=== PATIENT | male | born 1990 | race Hispanic/Latino ===

== ENCOUNTER 2021-02-27 05:28 | Emergency (ER) | payer SELFPAY ==
[~2021-02-27] VITALS: Ht 170.2 cm; Wt 84.4 kg
[2021-02-27 06:38] LABS: AMPHET/METH SCREEN,URINE POSITIVE (NEGATIVE); BARBITURATE SCREEN, URINE NEGATIVE (NEGATIVE); BENZODIAZEPINES SCREEN,URINE POSITIVE (NEGATIVE); CANNABINOID SCREEN,URINE NEGATIVE (NEGATIVE); COCAINE SCREEN,URINE NEGATIVE (NEGATIVE); OPIATE SCREEN,URINE NEGATIVE (NEGATIVE); PHENCYCLIDINE SCREEN,URINE NEGATIVE (NEGATIVE)
[2021-02-27 06:45] LABS: APPEARANCE,URINE CLEAR (CLEAR); BILIRUBIN,URINE NEGATIVE (NEGATIVE); COLOR,URINE YELLOW (YELLOW); GLUCOSE, URINE (UA) NEGATIVE (NEGATIVE); KETONES,URINE NEGATIVE (NEGATIVE); LEUKOCYTE ESTERASE ,URINE NEGATIVE (NEGATIVE); NITRATE,URINE NEGATIVE (NEGATIVE); OCCULT BLOOD,URINE NEGATIVE (NEGATIVE); PH,URINE 7.5 (5.0-8.0); PROTEIN,URINE NEGATIVE (NEGATIVE); UROBILINOGEN,URINE 0.2 mg/dL (0.2-1.0)
[2021-02-27] MEDS ORDERED: CELE200 PO (06:56)
[2021-02-27 06:57] VITALS: BP 133/82
== END 2021-02-27 07:06 | disposition home or self-care (01) ==
LOC: EDH 05:28
DX: F14.10 Cocaine abuse, uncomplicated (principal); M79.2 Neuralgia and neuritis, unspecified
CPT/HCPCS: 80305; 81003

== ENCOUNTER 2021-04-25 01:00 | Emergency (ER) | payer SELFPAY ==
[~2021-04-25] VITALS: Ht 170.2 cm; Wt 90.7 kg
[~2021-04-25 01:00] MED LIST: CELE200 PO
[2021-04-25] MEDS ORDERED: ACET1TAB25 PO (01:28)
[2021-04-25] MEDS ORDERED: PENI500T2 PO (01:28)
[2021-04-25] MEDS ORDERED: PENICILLIN V POTASSIUM 500 MG TABLET PO STA (01:32)
[2021-04-25 01:53] VITALS: BP 126/65
[2021-04-25] MEDS ORDERED: ACETAMINOPHEN WITH CODEINE 1 TAB TAB PO ONE (02:00)
== END 2021-04-25 01:50 | disposition home or self-care (01) ==
LOC: EDH 01:00
DX: G89.29 Other chronic pain (principal); K08.89 Other specified disorders of teeth and supporting structures; Z79.1 Long term (current) use of non-steroidal anti-inflammatories (NSAID)

== ENCOUNTER 2021-07-18 11:32 | Emergency (ER) | payer OTHER ==
[~2021-07-18] VITALS: Ht 170.2 cm; Wt 90.7 kg
[~2021-07-18 11:32] MED LIST changes: +PENI500T2 PO
[2021-07-18 11:33] VITALS: BP 116/79
[2021-07-18] MEDS ORDERED: LIDOCAINE/PRILOCAINE CREAM 5GM TUBE TP ONE (11:52)
[2021-07-18] MEDS ORDERED: LIDOCAINE HCL MPF 1% 5ML VIAL ONE (11:55)
[2021-07-18] MEDS ORDERED: CEFTRIAXONE 500MG VIAL IM ONE (12:00)
[2021-07-18] MEDS ORDERED: LIDOCAINE/PRILOCAINE CREAM 5GM TUBE TP SCH (12:00)
[2021-07-18] MEDS ORDERED: LIDOCAINE HCL 1% 20 ML VIAL INJ SCH (12:00)
[2021-07-18] MEDS ORDERED: ACETAMINOPHEN 500 MG TABLET PO ONE (12:00)
[2021-07-18] MEDS ORDERED: TETANUS/DIPHTHERIA TOXOID [ADULT] 0.5 ML VIAL IM ONE (12:00)
[2021-07-18] MEDS ORDERED: AMOX1TAB16 PO (16:31)
[2021-07-18] MEDS ORDERED: NAPR500T6 PO (16:31)
[2021-07-18] MEDS ORDERED: BACI30OI6 TP (16:31)
== END 2021-07-18 13:46 | disposition left against medical advice (07) ==
LOC: EDH 11:32
DX: S69.92XA Unspecified injury of left wrist, hand and finger(s), initial encounter (principal); Z79.1 Long term (current) use of non-steroidal anti-inflammatories (NSAID); X58.XXXA Exposure to other specified factors, initial encounter; Y93.89 Activity, other specified; Y92.89 Other specified places as the place of occurrence of the external cause; Y99.8 Other external cause status
CPT/HCPCS: 73140; 90471; 90714; 96372; 99284; J0696; J3490 ×2

== ENCOUNTER 2021-07-18 14:11 | Emergency (ER) | payer OTHER ==
[~2021-07-18] VITALS: Ht 170.2 cm; Wt 90.7 kg
[2021-07-18 14:12] VITALS: BP 126/74
[2021-07-18] MEDS ORDERED: SILVER NITRATE APPLICATOR 1 SWAB TP ONE ×3 (14:38→16:00)
[2021-07-18] MEDS ORDERED: SILVER NITRATE APPLICATOR 1 SWAB TP SCH (15:00)
[2021-07-18] MEDS ORDERED: LIDOCAINE HCL MPF 1% 5ML VIAL ONE (15:51)
[2021-07-18] MEDS ORDERED: BACITRACIN 28.4 GM OINT TP ONE (16:30)
[2021-07-18] MEDS ORDERED: BACI30OI6 TP (16:31)
[2021-07-18] MEDS ORDERED: AMOX1TAB16 PO (16:31)
[2021-07-18] MEDS ORDERED: NAPR500T6 PO (16:31)
== END 2021-07-18 16:45 | disposition home or self-care (01) ==
LOC: EDH 14:11
DX: S61.305A Unspecified open wound of left ring finger with damage to nail, initial encounter (principal); X58.XXXA Exposure to other specified factors, initial encounter; Y93.89 Activity, other specified; Y92.89 Other specified places as the place of occurrence of the external cause; Y99.8 Other external cause status
CPT/HCPCS: 11760; 99284; J3490

== ENCOUNTER 2021-10-31 04:38 | Emergency (ER) | payer OTHER ==
[~2021-10-31] VITALS: Ht 170.2 cm; Wt 89.8 kg
[~2021-10-31 04:38] MED LIST changes: +AMOX1TAB16 PO; +BACI30OI6 TP; +NAPR500T6 PO
[2021-10-31] MEDS ORDERED: TRAM-355 PO (05:46)
[2021-10-31] MEDS ORDERED: IBUP-2077 PO (05:58)
[2021-10-31 06:08] VITALS: BP 112/68
== END 2021-10-31 06:09 | disposition home or self-care (01) ==
LOC: EDH 04:38
DX: G89.29 Other chronic pain (principal); K08.89 Other specified disorders of teeth and supporting structures; Z79.1 Long term (current) use of non-steroidal anti-inflammatories (NSAID)